=== PATIENT | male | born 1970 | race Caucasian/White ===

== ENCOUNTER 2020-05-11 08:00 | Outpatient (RCR) | payer BC, SELFPAY ==
[2015-03-18 16:49] VITALS: BMI 27.8
[2020-05-11] MEDS: COVID-19 VACC, MRNA(PFIZER)/PF 30 MCG/0.3 ML SYRINGE IM (09:40)
[2020-06-01] MEDS: COVID-19 VACC, MRNA(PFIZER)/PF 30 MCG/0.3 ML SYRINGE IM (09:27)
== END 2020-08-03 23:59 ==
LOC: IMMUN 08:00
PROVIDERS: PCP Family Medicine; Visit Provider Family Medicine
DX: Z23 Encounter for immunization (principal)
CPT/HCPCS: 0001A; 0002A; 91300

== ENCOUNTER → 2023-12-05 | Outpatient (CLI) | payer BC, SELFPAY ==
--- NOTE | 2023-12-05 13:07 | MRI_ITS ---
STUDY: MR PROSTATE GLAND/ PELVIS WITH T WITHOUT CONTRAST REASON FOR EXAM: Male, 53 years old. ELEVATED PSA,,PSA 6.14 TECHNIQUE: Standardized fat and water weighted pulse sequences were obtained in all 3 orthogonal planes, pre-and post contrast administration. IV 15ml clariscan was administered for the contrast portion of the examination. COMPARISON: None. FINDINGS: Prostate gland volume/size: 5.80 x 4.47 x 5.64 cm, which is mildly enlarged Anterior fibromuscular stroma: Normal Peripheral zone: Mildly heterogeneous with linear intermediate to low signal foci likely due to chronic fibrosis or sequela from inflammation. No demonstrated enhancing mass or nodule or lesion with abnormal diffusion weighted signal. Central zone: Diffusely heterogeneous and nodular and coarsened consistent with BPH. No focal mass or focally enhancing lesion with neoplastic characteristics on the current study. Transitional zone: Diffusely heterogeneous and nodular and coarsened consistent with BPH. No focal mass or focally enhancing lesion with neoplastic characteristics on the current study. Prostate capsule: Intact Seminal vesicles: Normal bilaterally Pelvic sidewall lymphadenopathy: None demonstrated Bony structures: No lytic or blastic lesions or marrow edema or abnormally enhancing bony lesions. Normal urinary bladder. Normal visualized small intestine. Normal visualized colon. There is no pelvic fluid. There is no pelvic mass lesion or lymphadenopathy. Normal abdominal wall. MRI/Pelvis W/WO Contrast IMPRESSION: 1. Diffusely heterogeneous and nodular and coarsened consistent with BPH. No focal mass or focally enhancing lesion with neoplastic characteristics on the current study. 2. PI-RADS 3: intermediate (the presence of clinically significant cancer is equivocal) Reference information: Normal prostate tissue Benign prostatic hypertrophy cancer/tumor - low signal peripheral , transitional, and central zones malignancy appears as bright on DWI and low signal on ADC map Prostate imaging-reporting and data system (PI-RADS) PI-RADS 1: very low (clinically significant cancer is highly unlikely to be present) PI-RADS 2: low (clinically significant cancer is unlikely to be present) PI-RADS 3: intermediate (the presence of clinically significant cancer is equivocal) PI-RADS 4: high (clinically significant cancer is likely to be present) PI-RADS 5: very high (clinically significant cancer is highly likely to be present) PI-RADS X: component of exam technically inadequate or not performed Prostate malignancy distribution: Peripheral zone: 70-80% Transitional zone: 10-20% Central zone: 5% or less Electronically Signed: Narciso Christensen MD at 15:38 EDT Reading Location ID and State: [facility] / [place] , Service support ,
== END | disposition home or self-care (01) ==
PROVIDERS: PCP Family Medicine; Referring Provider Nurse Practitioner; Visit Provider Nurse Practitioner
DX: R97.20 Elevated prostate specific antigen [PSA] (principal)
CPT/HCPCS: 72197; A9575

== ENCOUNTER → 2024-06-04 | Outpatient (CLI) | payer BC, SELFPAY ==
[2024-06-04 17:24] LABS: PSA,Total - Annual Screen 6.82 ng/mL (0.02-4.00)
== END | disposition home or self-care (01) ==
LOC: LAB 15:40
PROVIDERS: PCP Family Medicine; Referring Provider Urology; Visit Provider Urology
DX: N40.1 Benign prostatic hyperplasia with lower urinary tract symptoms (principal)
CPT/HCPCS: 36415; 84153; G0103

== ENCOUNTER → 2024-06-24 | Outpatient (CLI) | payer BC, SELFPAY ==
--- NOTE | 2024-06-24 13:00 | PROSBIL_PTH ---
PATIENT: GORDO SANTIAGO Jr. LOC: [facility] U#:[id number] AGE/SX: 54/M ROOM: RE06/24/[address]: Dr. Malik Rodriguez MD : 1970 BED: DIS: 06/24/2024 SPEC #: [id number] RECD: 06/24/24 15:58 STATUS: ALINA REQ #: [id number] ZHANE: 06/24/24 13:[address]: Malik Rodriguez DEPT: SURGICAL PATHOLOGY RECD BY: Jose Guadalupe Romero ENTERED: 06/24/24 15:58 SP TYPE: PROST BX OT DR: Dr. Misael Aranda MD Tissues: A - PROSTATE RIGHT B - PROSTATE RIGHT C - PROSTATE RIGHT D - PROSTATE LEFT E - PROSTATE LEFT F - PROSTATE LEFT Procedures: PROSTATE BX IHC Stain ADDITIONAL HEADER OPERATION: Prostate biopsy PRE-OP DIAGNOSIS: Elevated PSA TISSUE SUBMITTED: A - Right apex, B - Right mid, C - Right base, D - Left apex, E - Left mid, F - Left base MICROSCOPIC DIAGNOSIS A. Prostate, right apex, biopsy: * Benign prostate tissue. B. Prostate, right mid, biopsy: * High grade PIN. * IHC for [id number] supports the diagnosis. C. Prostate, right base, biopsy: * High grade PIN. * IHC for [id number] supports the diagnosis. D. Prostate, left apex, biopsy: * Benign prostate tissue. E. Prostate, left mid, biopsy: * Benign prostate tissue with focal mild acute inflammation. F. Prostate, left base, biopsy: * High grade PIN. * IHC for [id number] supports the diagnosis. MICROSCOPIC DESCRIPTION Slides are reviewed. All matched controls reacted appropriately. These tests were developed and their performance characteristics determined by [facility]. They may not have been cleared or approved by the [place] Food and Drug Administration. The FDA has determined that such clearance or approval is not necessary.? The above immunohistochemical/dualISH?markers are ordered and reviewed by the Pathologist. GROSS DESCRIPTION A. Received in formalin in a container labeled with the patient's name, date of , and RA are 2 white and wispy core biopsies of soft tissue each measuring 1.5 x 0.1 cm. Submitted in toto in A1. B. Received in formalin in a container labeled with the patient's name, date of , and RM are 2 white and wispy core biopsies of soft tissue measuring 1.3 x 0.1 cm and 1.5 x 0.1 cm. Submitted in toto in B1. C. Received in formalin in a container labeled with the patient's name, date of , and RB are 2 white and wispy core biopsies of soft tissue each measuring 1.5 x 0.1 cm. Submitted in toto in C1. D. Received in formalin in a container labeled with the patient's name, date of , and LA are 2 white and wispy core biopsies of soft tissue measuring 1.0 x 0.1 cm and 1.3 x 0.1 cm. Submitted in toto in D1. E. Received in formalin in a container labeled with the patient's name, date of , and LM are 2 white and wispy core biopsies of soft tissue measuring 1.0 x 0.1 cm and 1.2 x 0.1 cm. Submitted in toto in E1. F. Received in formalin in a container labeled with the patient's name, date of , and LB are 2 white and wispy core biopsies of soft tissue each measuring 1.3 x 0.1 cm. Submitted in toto in F1. [facility] 06-24-2024 CPT:[id number], [id number]
== END | disposition home or self-care (01) ==
LOC: LABSPEC 15:38
PROVIDERS: PCP Family Medicine; Referring Provider Urology; Visit Provider Urology
DX: N42.31 Prostatic intraepithelial neoplasia (principal); N41.9 Inflammatory disease of prostate, unspecified; R97.20 Elevated prostate specific antigen [PSA]
CPT/HCPCS: 88305; 88341; G0416

== ENCOUNTER → 2024-12-29 | Outpatient (CLI) | payer BC, SELFPAY ==
[2024-12-29 17:38] LABS: PSA,Total- Diagnostic 7.06 ng/mL (0.00-4.00)
== END | disposition home or self-care (01) ==
LOC: LAB 15:48
PROVIDERS: PCP Family Medicine; Referring Provider Urology; Visit Provider Urology
DX: R97.20 Elevated prostate specific antigen [PSA] (principal)
CPT/HCPCS: 36415; 84153